=== PATIENT | male | born 1985 | race Caucasian/White ===

== ENCOUNTER → 2022-03-04 | Outpatient (CLI) | payer OTHER | LOC: KOH-I 10:07 | DX: M25.572 Pain in left ankle and joints of left foot (principal); M79.672 Pain in left foot; S92.312A Displaced fracture of first metatarsal bone, left foot, initial encounter for closed fracture; S92.322A Displaced fracture of second metatarsal bone, left foot, initial encounter for closed fracture; S92.332A Displaced fracture of third metatarsal bone, left foot, initial encounter for closed fracture | CPT/HCPCS: 73610; 73630; 73700 ==

== ENCOUNTER → 2022-03-17 | Outpatient (CLI) | payer OTHER ==
[~2022-03-17] MED LIST: ATORVASTATIN CA40 MG PO; BUMETANIDE1 MG PO; FARXIGA5 MG PO; FLUOXETINE HCL40 MG PO; GABAPENTIN800 MG PO; HYDROCODON-ACE1 EAC6 PO; LISINOPRIL30 MG PO; LOW DOSE ASPIRI81 MG PO; METFORMIN HCL500 M2 PO; METOPROLOL SUCC25 MG PO; ONDANSETRON ODT8 MG PO; TIZANIDINE HCL4 MG PO; TRULICITY1.5 MG/0.5 SQ; VITAMIN D21250 MCG PO; ZYRTEC10 M3 PO
[2022-03-17 13:01] LABS: RED BLOOD COUNT 5.51 M/UL (4.20-5.50); WHITE BLOOD COUNT 12.2 K/UL (4.5-11.0)
[2022-03-17 13:36] LABS: BUN/CREATININE RATIO 19 (0-10)
== END ==
LOC: OPSV2 10:00
PROVIDERS: Podiatrist Foot & Ankle Surgery
DX: Z01.818 Encounter for other preprocedural examination (principal); S93.325A Dislocation of tarsometatarsal joint of left foot, initial encounter
CPT/HCPCS: 36415; 80048; 83036; 85027; 93005